=== PATIENT | male | born 1985 | race Caucasian/White ===

== ENCOUNTER 2017-08-28 21:25 | Emergency (ER) | payer OTHER ==
[2017-08-28] MEDS ORDERED: LIDOCAINE HCL 1% MDV SOL SC ONE (21:49)
[2017-08-28] MEDS ORDERED: BACITRACIN 500 U/GM OIN TOP ONE ×2 (21:50→21:51)
[2017-08-28] MEDS ORDERED: LIDOCAINE HCL 1% MPF SOL ONE (21:51)
[2017-08-28 22:27] VITALS: BP 132/93; PULSE 87; RESP 16; TEMP 96.8; O2SAT 99
== END 2017-08-28 22:30 | disposition home or self-care (01) | DRG 605 ==
LOC: ED 21:25
DX: S61.217A Laceration without foreign body of left little finger without damage to nail, initial encounter (principal)
CPT/HCPCS: 12001; 99283; A6402; J2001